=== PATIENT | female | born 1970 | race Hispanic/Latino ===

== ENCOUNTER 2016-08-07 05:16 | Emergency (ER) | payer OTHER | END 2016-08-07 05:20 | LOC: ED 05:16 | DX: Z53.21 Procedure and treatment not carried out due to patient leaving prior to being seen by health care provider (principal); Z91.02 Food additives allergy status; Z88.8 Allergy status to other drugs, medicaments and biological substances ==

== ENCOUNTER 2017-01-13 19:07 | Emergency (ER) | payer OTHER ==
[2017-01-13 19:53] VITALS: BP 108/67
--- NOTE | 2017-01-13 20:24 | Emergency Department Report ---
ED Upper Extremity Inj HPI - General Chief Complaint: Extremity Injury, Upper Stated Complaint: RT ARM PAIN Source: patient Mode of arrival: Ambulatory Limitations: No Limitations - History of Present Illness MD Complaint: Injury to:: right, elbow -: Sudden, days(s) Other Extremity Injury: Elbow: Right Other Injuries: none Handedness: right Place: outdoors Severity scale (0 -10): 4 Context: fall Associated Symptoms: denies other symptoms Treatments Prior to Arrival: NSAIDS - Related Data Home Medications Medication Instructions Recorded Confirmed Last Taken Citalopram [celeXA] 40 mg PO QDAY 10/15/14 11/17/15 10/15/14 15:00 40 Hydrochlorothiazide 25 mg PO DAILY 10/15/14 11/17/15 10/15/14 15:00 25 Lovastatin Tab [Mevacor] 10 mg PO QPM 10/15/14 11/17/15 10/15/14 15:00 10 Metformin HCl [Fortamet ER] 1,000 mg PO QDAY 10/15/14 11/17/15 10/15/14 15:00 1000 Metoprolol [Lopressor TAB] 50 mg PO BID 10/15/14 11/17/15 10/07/14 15:00 50 clonazePAM [KlonoPIN] 0.5 mg PO BID PRN 10/15/14 11/17/15 10/10/14 20:00 .5 glipiZIDE [glipiZIDE ER] 5 mg PO BID 10/15/14 11/17/15 10/14/14 15:00 5 Previous Rx's Medication Instructions Recorded Last Taken Type Aspirin [Aspirin TAB] 325 mg PO QDAY tablet 10/16/14 Unknown Rx Azithromycin [Zithromax TAB] 250 mg PO QDAY #6 tablet 11/17/15 Unknown Rx Benzonatate [Tessalon Perles] 100 mg PO Q8HR PRN #10 capsule 11/17/15 Unknown Rx Cyclobenzaprine [Flexeril] 10 mg PO TID #15 tablet 06/16/16 Unknown Rx Ibuprofen [Motrin 800 MG tab] 800 mg PO Q8HR PRN #30 tablet 06/16/16 Unknown Rx traMADol [Ultram 50 MG tab] 50 mg PO Q4HR PRN #20 tablet 01/13/17 Unknown Rx Allergies Allergy/AdvReac Type Severity Reaction Status Date / Time olive extract [olive] Allergy Hives Verified 05/14/15 13:17 sumatriptan [From Imitrex] Allergy Swelling Verified 05/14/15 13:17 sumatriptan succinate Allergy Swelling Verified 05/14/15 13:17 [From Imitrex] acetaminophen [From Lortab] AdvReac sick to Verified 05/14/15 13:17 stomach hydrocodone bitartrate AdvReac sick to Verified 05/14/15 13:17 [From Lortab] stomach ED Review of Systems ROS: Stated complaint: RT ARM PAIN Other details as noted in HPI Constitutional: denies: chills, fever Eyes: denies: eye pain, eye discharge, vision change ENT: denies: ear pain, throat pain Respiratory: denies: cough, shortness of breath, wheezing Cardiovascular: denies: chest pain, palpitations Endocrine: no symptoms reported Gastrointestinal: denies: abdominal pain, nausea, diarrhea Genitourinary: denies: urgency, dysuria, discharge Musculoskeletal: arthralgia. denies: back pain, joint swelling Skin: denies: rash, lesions Neurological: denies: headache, weakness, paresthesias Psychiatric: denies: anxiety, depression Hematological/Lymphatic: denies: easy bleeding, easy bruising ED Past Medical Hx - Past Medical History Hx Hypertension: No Hx CVA: No Hx Diabetes: Yes Hx Renal Disease: No Hx Arthritis: Yes Hx Seizures: No Hx Psychiatric Treatment: Yes (anxiety, Depression) Hx Asthma: Yes Hx HIV: No Additional medical history: Neuropathy. MVP. High cholesterol. TIA X 2 - Surgical History Hx Pacemaker: No Hx Cholecystectomy: Yes Additional Surgical History: x 2. right foot - Social History Smoking Status: Current Every Day Smoker Substance Use Type: None - Medications Home Medications: Home Medications Medication Instructions Recorded Confirmed Last Taken Type Citalopram [celeXA] 40 mg PO QDAY 10/15/14 11/17/15 10/15/14 15:00 History 40 Hydrochlorothiazide 25 mg PO DAILY 10/15/14 11/17/15 10/15/14 15:00 History 25 Lovastatin Tab [Mevacor] 10 mg PO QPM 10/15/14 11/17/15 10/15/14 15:00 History 10 Metformin HCl [Fortamet ER] 1,000 mg PO QDAY 10/15/14 11/17/15 10/15/14 15:00 History 1000 Metoprolol [Lopressor TAB] 50 mg PO BID 10/15/14 11/17/15 10/07/14 15:00 History 50 clonazePAM [KlonoPIN] 0.5 mg PO BID PRN 10/15/14 11/17/15 10/10/14 20:00 History .5 glipiZIDE [glipiZIDE ER] 5 mg PO BID 10/15/14 11/17/15 10/14/14 15:00 History 5 Aspirin [Aspirin TAB] 325 mg PO QDAY tablet 10/16/14 11/17/15 Unknown Rx Azithromycin [Zithromax TAB] 250 mg PO QDAY #6 tablet 11/17/15 Unknown Rx Benzonatate [Tessalon Perles] 100 mg PO Q8HR PRN #10 capsule 11/17/15 Unknown Rx Cyclobenzaprine [Flexeril] 10 mg PO TID #15 tablet 06/16/16 Unknown Rx Ibuprofen [Motrin 800 MG tab] 800 mg PO Q8HR PRN #30 tablet 06/16/16 Unknown Rx traMADol [Ultram 50 MG tab] 50 mg PO Q4HR PRN #20 tablet 01/13/17 Unknown Rx ED Physical Exam - General Limitations: No Limitations General appearance: alert, in no apparent distress - Head Head exam: Present: atraumatic, normocephalic - Eye Eye exam: Present: normal appearance, PERRL, EOMI - ENT ENT exam: Present: mucous membranes moist - Neck Neck exam: Present: normal inspection - Respiratory Respiratory exam: Absent: respiratory distress - Cardiovascular Cardiovascular Exam: Present: regular rate - Extremities Exam Extremities exam: Present: normal capillary refill, other (right elbow with no swelling, no deformity. Patient does have painful pronation and supination, going to rule out radial head fracture.). Absent: joint swelling - Back Exam Back exam: Present: normal inspection. Absent: CVA tenderness (R), CVA tenderness (L) - Neurological Exam Neurological exam: Present: alert, oriented X3, CN II-XII intact - Skin Skin exam: Present: warm, dry, intact ED Course Vital Signs 01/13/17 19:49 Temperature 98.5 F Pulse Rate 78 Respiratory 16 Rate Blood Pressure 108/67 O2 Sat by Pulse 95 Oximetry ED Medical Decision Making - Radiology Data Radiology results: report reviewed no fracture or fat pad Critical care attestation.: If time is entered above; I have spent that time in minutes in the direct care of this critically ill patient, excluding procedure time. ED Disposition Clinical Impression: Sprain of right elbow Disposition: - TO HOME OR SELFCARE Is pt being admited?: No Condition: Stable Instructions: Elbow Sprain (ED) Prescriptions: traMADol [Ultram 50 MG tab] 50 mg PO Q4HR PRN #20 tablet PRN Reason: Pain Referrals: PRIMARY CARE, [Primary Care Provider] - 3-5 Days EUGENE AYALA MD [Staff Physician] - 3-5 Days
--- NOTE | 2017-01-13 21:01 | XRay Report ---
FINAL REPORT PROCEDURE: Right elbow. TECHNIQUE: Three views. HISTORY: RT ELBOW PAIN COMPARISON: No prior studies are available for comparison. FINDINGS: The bones appear intact without fracture or dislocation. The joint spaces appear normal. The soft tissues are unremarkable. There is no evidence of an elbow effusion. IMPRESSION: Normal study.
== END 2017-01-13 21:23 | disposition home or self-care (01) ==
LOC: ED 19:07
DX: S53.491A Other sprain of right elbow, initial encounter (principal); E11.9 Type 2 diabetes mellitus without complications; M19.90 Unspecified osteoarthritis, unspecified site; F31.9 Bipolar disorder, unspecified; F41.9 Anxiety disorder, unspecified; F17.200 Nicotine dependence, unspecified, uncomplicated; J45.909 Unspecified asthma, uncomplicated; Z88.8 Allergy status to other drugs, medicaments and biological substances; Z91.018 Allergy to other foods; Z79.82 Long term (current) use of aspirin; X58.XXXA Exposure to other specified factors, initial encounter; Y93.89 Activity, other specified; Y99.8 Other external cause status; Y92.89 Other specified places as the place of occurrence of the external cause
CPT/HCPCS: 99283

== ENCOUNTER 2019-05-07 23:48 | Observation (INO) | payer OTHER ==
[2019-05-08 00:50] LABS: Basophils # (Auto) 0.1 K/mm3 (0.0-0.1); Basophils % (Auto) 1.6 % (0.0-1.8); Eosinophils # (Auto) 0.5 K/mm3 (0.0-0.4); Eosinophils % (Auto) 6.6 % (0.0-4.3); Hematocrit 36.2 % (30.3-42.9); Hemoglobin 12.3 gm/dl (10.1-14.3); Lymphocytes # (Auto) 2.2 K/mm3 (1.2-5.4); Lymphocytes % (Auto) 27.5 % (13.4-35.0); Mean Corpuscular HGB Conc 34 % (30-34); Mean Corpuscular Volume 93 fl (79-97); Monocytes # (Auto) 0.8 K/mm3 (0.0-0.8); Monocytes % (Auto) 9.5 % (0.0-7.3); Platelet Count 258 K/mm3 (140-440); Red Blood Count 3.89 M/mm3 (3.65-5.03); Red Cell Distribution Width 14.3 % (13.2-15.2)
--- NOTE | 2019-05-08 01:02 | XRay Report ---
CHEST 1 VIEW INDICATION: Chest Pain. COMPARISON: None. FINDINGS: Support devices: None. Heart: Within normal limits. Lungs/Pleura: No acute air space or interstitial disease. Additional findings: None. IMPRESSION: No acute abnormality. Signer Name: Pj Frias MD Signed: 05/08/2019 12:57 AM Workstation Name: [id number]
[2019-05-08 01:13] LABS: BUN/Creatinine Ratio 26; Blood Urea Nitrogen 21 mg/dL (7-17); Calcium 8.8 mg/dL (8.4-10.2); Hemolysis Index 24
[2019-05-08] MEDS ORDERED: ASPIRIN 325 MG TAB PO ONE (02:29)
[2019-05-08] MEDS ORDERED: NITROGLYCERIN 2% OINT 1 GM TP ONE (02:29)
--- NOTE | 2019-05-08 02:34 | Emergency Department Report ---
HPI - General Chief Complaint: Weakness Time Seen by Provider: 05/08/19 01:23 - HPI HPI: Room 24 The patient is a 48-year-old female presenting with chief complaint of chest pain and bilateral lower extremity swelling. The patient states for the past 3 days she's noted swelling of both lower extremities and she's been extremely fatigued. Patient states she's been compliant with her hydrochlorothiazide but has not helped with her swelling. Patient describes her chest discomfort as a pinching pain in the left chest which began yesterday. Patient states this pain is intermittent and associated with shortness of breath, diaphoresis and nausea without vomiting. The patient states her last stress test recurred over 5 years ago she's never had a cardiac catheterization Location: [See above] Duration: [See above] Quality: [See above] Severity: [See above] Timing: [See above] Context: [See above] Modifying factors: [See above] Associated signs and symptoms: [see above] ED Past Medical Hx - Past Medical History Previous Medical History?: Yes Hx Diabetes: Yes Hx Arthritis: Yes Hx Headaches / Migraines: Yes Hx Kidney Stones: Yes Hx Psychiatric Treatment: Yes (anxiety, Depression) Hx Asthma: Yes Additional medical history: Neuropathy. MVP. High cholesterol. TIA X 2 - Surgical History Past Surgical History?: Yes Hx Cholecystectomy: Yes Additional Surgical History: x 2. right foot - Family History Family history: no significant - Social History Smoking Status: Current Every Day Smoker (1/3 pack per day) Substance Use Type: None (denies illicit drug use) - Medications Home Medications: Home Medications Medication Instructions Recorded Confirmed Last Taken Type Citalopram [celeXA] 40 mg PO QDAY 10/15/14 11/17/15 10/15/14 15:00 History 40 Lovastatin Tab [Mevacor] 10 mg PO QPM 10/15/14 11/17/15 10/15/14 15:00 History 10 Metformin HCl [Fortamet ER] 1,000 mg PO QDAY 10/15/14 11/17/15 10/15/14 15:00 History 1000 Metoprolol [Lopressor TAB] 50 mg PO BID 10/15/14 11/17/15 10/07/14 15:00 History 50 clonazePAM [KlonoPIN] 0.5 mg PO BID PRN 04/11/17/15 10/10/14 20:00 History .5 glipiZIDE [glipiZIDE ER] 5 mg PO BID 10/15/14 11/17/15 10/14/14 15:00 History 5 hydroCHLOROthiazide 25 mg PO DAILY 10/15/14 11/17/15 10/15/14 15:00 History [Hydrochlorothiazide] 25 Aspirin 325 mg PO QDAY tablet 10/16/14 11/17/15 Unknown Rx Azithromycin [Zithromax TAB] 250 mg PO QDAY #6 tablet 11/17/15 Unknown Rx Benzonatate [Tessalon Perles] 100 mg PO Q8HR PRN #10 capsule 11/17/15 Unknown Rx Cyclobenzaprine [Flexeril] 10 mg PO TID #15 tablet 06/16/16 Unknown Rx Ibuprofen [Motrin 800 MG tab] 800 mg PO Q8HR PRN #30 tablet 06/16/16 Unknown Rx traMADoL [Ultram 50 MG tab] 50 mg PO Q4HR PRN #20 tablet 01/13/17 Unknown Rx Nitrofurantoin [place]/M-Cryst 100 mg PO Q12HR #10 capsule 05/11/18 Unknown Rx [Macrobid CAP] Tramadol HCl [Ultram] 50 mg PO Q6H PRN #10 tablet 05/11/18 Unknown Rx ED Review of Systems ROS: Stated complaint: WEAKNESS Other details as noted in HPI Constitutional: diaphoresis Eyes: denies: eye pain ENT: denies: throat pain Respiratory: shortness of breath Cardiovascular: chest pain Endocrine: no symptoms reported Gastrointestinal: nausea. denies: vomiting Musculoskeletal: denies: back pain Neurological: denies: headache Physical Exam - Physical Exam Vital Signs: Vital Signs 05/08/19 00:11 Temperature 97.6 F Pulse Rate 80 Respiratory 16 Rate Blood Pressure 122/72 O2 Sat by Pulse 96 Oximetry Physical Exam: GENERAL: The patient is well-developed well-nourished female sitting on stretcher not appearing to be in acute distress. [] HEENT: Normocephalic. Atraumatic. Extraocular motions are intact. Patient has moist mucous membranes. NECK: Supple. Midline CHEST/LUNGS: Clear to auscultation. There is no respiratory distress noted. HEART/CARDIOVASCULAR: Regular. There is no tachycardia. There is no gallop rub or murmur. ABDOMEN: Abdomen is soft, nontender. Patient has normal bowel sounds. There is no abdominal distention. SKIN: There is no rash. There is trace pedal edema bilaterally. There is no diaphoresis. NEURO: The patient is awake, alert, and oriented. The patient is cooperative. The patient has normal speech MUSCULOSKELETAL: There is no evidence of acute injury. ED Course Vital Signs 05/08/19 00:11 Temperature 97.6 F Pulse Rate 80 Respiratory 16 Rate Blood Pressure 122/72 O2 Sat by Pulse 96 Oximetry ED Medical Decision Making - Lab Data Result diagrams: 05/08/19 00:28 05/08/19 00:28 Laboratory Tests 05/08/19 05/08/19 05/08/19 00:28 00:28 00:28 WBC 8.1 RBC 3.89 Hgb 12.3 Hct 36.2 MCV 93 MCH 32 MCHC 34 RDW 14.3 Plt Count 258 Lymph % (Auto) 27.5 [place] % (Auto) 9.5 H Eos % (Auto) 6.6 H Baso % (Auto) 1.6 Lymph # 2.2 [place] # 0.8 Eos # 0.5 H Baso # 0.1 Seg Neutrophils % 54.8 Seg Neutrophils # 4.4 Sodium 138 Potassium 4.3 Chloride 101.1 Carbon Dioxide 25 Anion Gap 16 BUN 21 H Creatinine 0.8 Estimated GFR > 60 BUN/Creatinine Ratio 26 Glucose 277 H Calcium 8.8 Troponin T < 0.010 NT-Pro-B Natriuret Pep 245.2 TSH Free T4 05/08/19 05/08/19 02:38 02:38 WBC RBC Hgb Hct MCV MCH MCHC RDW Plt Count Lymph % (Auto) [place] % (Auto) Eos % (Auto) Baso % (Auto) Lymph # [place] # Eos # Baso # Seg Neutrophils % Seg Neutrophils # Sodium Potassium Chloride Carbon Dioxide Anion Gap BUN Creatinine Estimated GFR BUN/Creatinine Ratio Glucose Calcium Troponin T NT-Pro-B Natriuret Pep 242.6 TSH 1.930 Free T4 1.38 - EKG Data -: EKG Interpreted by Me EKG shows normal: sinus rhythm Rate: normal - EKG Data When compared to previous EKG there are: previous EKG unavailable Interpretation: other (no ischemic changes seen) - Radiology Data Radiology results: report reviewed (chest x-ray), image reviewed (chest x-ray) interpreted by me: Chest x-ray-no focal infiltrates, no pneumothorax [facility] [address] [place] [address] XRay Report Signed Patient: CASSIDY CARCAMO MR#: [id number] : 1970 Acct:[id number] Age/Sex: 48 / F ADM Date: 05/07/19 Loc: ED Attending Dr: Timothy duenas Physician: ED MD MATT Date of Service: 05/08/19 Procedure(s): XR chest 1V ap Accession Number(s): [id number] cc: ED DOCMD Fluoro Time In Minutes: CHEST 1 VIEW INDICATION: Chest Pain. COMPARISON: None. FINDINGS: Support devices: None. Heart: Within normal limits. Lungs/Pleura: No acute air space or interstitial disease. Additional findings: None. IMPRESSION: No acute abnormality. Signer Name: Pj Frias MD Signed: 05/08/2019 12:57 AM Workstation Name: [id number] Transcribed By: ES Dictated By: Pj Frias MD Electronically Authenticated By: Pj Frias MD Signed Date/Time: 05/08/1956 DD/ TD/TT: - Differential Diagnosis ACS, CHF, pericarditis, GERD Critical care attestation.: If time is entered above; I have spent that time in minutes in the direct care of this critically ill patient, excluding procedure time. ED Disposition Clinical Impression: Chest pain Disposition: 09 OP ADMIT IP TO THIS HOSP Is pt being admited?: Yes Does the pt Need Aspirin: Yes Condition: Fair Instructions: Chest Pain (ED) Time of Disposition: 04:02 (hospitalist paged (Dr. Britney Del Cid))
[2019-05-08 03:53] LABS: Free T4 (Free Thyroxine) 1.38 ng/dL (0.76-1.46)
[2019-05-08] MEDS ORDERED: NITROGLYCERIN 0.4 MG TAB SUBL SL PRN (04:23)
[2019-05-08] MEDS ORDERED: MORPHINE 2 MG/1 ML INJ IV PRN (04:27)
[2019-05-08] MEDS ORDERED: ACETAMINOPHEN 325 MG TAB PO PRN (04:27)
[2019-05-08] MEDS ORDERED: DEXTROSE 50% IN WATER (25GM) 50 ML SYRINGE IV PRN (04:27)
[2019-05-08] MEDS ORDERED: ALBUTEROL 2.5 MG/3 ML NEBU IH PRN (04:27)
[2019-05-08] MEDS ORDERED: ONDANSETRON 4 MG/2 ML INJ IV PRN (04:27)
--- NOTE | 2019-05-08 05:01 | History and Physical Report ---
<MARV GARCIA - Last Filed: 05/08/19 04:55> History of Present Illness Date of examination: 05/08/19 Date of admission: 05/08/2019 Chief complaint: BLE edema L>R, Fatigue, and Chest Pain History of present illness: 48-year-old female who is an ongoing smoker with history of diabetes type 2, arthritis, migraines, anxiety, depression, asthma, neuropathy, MVP, HLD, TIA 2 presents to [facility] ED with complaints of chest pain, fatigue and worsening bilateral lower extremity edema for the past 2-3 days. Patient states that she was unable to work last night she felt fatigued. Patient works at [employer] which requires her to stand on her feet for approximately 8-9 hours each shift. 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 Patient states she has chronic bilateral lower extremity edema and takes HCTZ. However her bilateral lower extremity edema has worsened even with being compliant with her diuretic therapy. Additionally she complains of intermittent left-sided chest pain. She rates her pain 5/10 and describes it as sharp. There are no aggravating or relieving factors. She denies n/v, and diaphoresis. Past History Past Medical History: arthritis, diabetes (with neuropathy), hyperlipidemia, other (asthma, depression, anxiety, MVP, migraines, TIAx2, ) Past Surgical History: cholecystectomy, (x2), Other (right foot surgery) Social history: smoking (smokes 1/3 ppd) Family history: no significant family history Medications and Allergies Allergies Allergy/AdvReac Type Severity Reaction Status Date / Time blueberry Allergy Anaphylaxis Verified 05/11/18 00:03 olive extract [olive] Allergy Hives Verified 05/14/15 13:17 sumatriptan [From Imitrex] Allergy Swelling Verified 05/14/15 13:17 sumatriptan succinate Allergy Swelling Verified 05/14/15 13:17 [From Imitrex] acetaminophen [From Lortab] AdvReac sick to Verified 05/14/15 13:17 stomach hydrocodone bitartrate AdvReac sick to Verified 05/14/15 13:17 [From Lortab] stomach Home Medications Medication Instructions Recorded Confirmed Last Taken Type Citalopram [celeXA] 40 mg PO QDAY 10/15/14 05/08/19 10/15/14 15:00 History 40 Metformin HCl [Fortamet ER] 1,000 mg PO QDAY 10/15/14 05/08/19 10/15/14 15:00 History 1000 Metoprolol [Lopressor TAB] 50 mg PO BID 10/15/14 05/08/19 10/07/14 15:00 History 50 glipiZIDE [glipiZIDE ER] 10 mg PO BID 10/15/14 05/08/19 10/14/14 15:00 History 5 hydroCHLOROthiazide 25 mg PO DAILY 10/15/14 05/08/19 10/15/14 15:00 History [Hydrochlorothiazide] 25 Aspirin 325 mg PO QDAY tablet 10/16/14 05/08/19 Unknown Rx AtorvaSTATin [Lipitor] 20 mg PO QDAY 05/08/19 05/08/19 Unknown History Gabapentin 400 mg PO TID 05/08/19 05/08/19 Unknown History Active Meds: Active Medications Acetaminophen (Tylenol) 650 mg PO Q4H PRN PRN Reason: Pain MILD(1-3)/Fever >100.5/BYRD Albuterol (Proventil) 2.5 mg IH Q4HRT PRN PRN Reason: Shortness Of Breath Aspirin (Baby Aspirin) 81 mg PO QDAY [facility] Atorvastatin Calcium (Lipitor) 20 mg PO QHS [facility] Dextrose (D50w (25gm) Syringe) 0 ml IV Q30MIN PRN; Protocol PRN Reason: Hypoglycemia Enoxaparin Sodium (Enoxaparin) 40 mg SUB-Q QDAY [facility] Insulin Human Lispro (Humalog) 0 unit SUB-Q Q6HR [facility]; Protocol Morphine Sulfate (Morphine) 2 mg IV Q4H PRN PRN Reason: Pain, Moderate (4-6) Nicotine (Habitrol) 14 mg TD QDAY [facility] Nitroglycerin (Nitrostat) 0.4 mg SL Q5M PRN PRN Reason: Chest Pain Ondansetron HCl (Zofran) 4 mg IV Q8H PRN PRN Reason: Nausea And Vomiting Sodium Chloride (Sodium Chloride Flush Syringe 10 Ml) 10 ml IV BID [facility] Sodium Chloride (Sodium Chloride Flush Syringe 10 Ml) 10 ml IV PRN PRN PRN Reason: LINE FLUSH Review of Systems All systems: negative Constitutional: fatigue Cardiovascular: chest pain (intermittent), shortness of breath, leg edema (worsening) Respiratory: cough with sputum (clear) Exam - Physical Exam Narrative exam: Physical exam General appearance: Present: No acute distress, alert and oriented 3, well-developed, adult female - EENT Eyes: Present: PERRL, EOM intact ENT: hearing intact, normal dentition - Neck Neck: Present: supple, normal ROM - Respiratory Respiratory effort: Non-labored Respiratory: Diminished bases - Cardiovascular Heart rate: 76(bpm) Rhythm: Sinus rhythm Heart Sounds: Present: S1 & S2. Absent: rub, click - Extremities Extremities: no ischemia, pulses intact, BLE edema L>R - Peripheral Assessment Peripheral Pulses: within normal limits - Abdominal General gastrointestinal: soft, non-tender, normal bowel sounds - Integumentary Integumentary: Present: warm, dry - Musculoskeletal Musculoskeletal: Able to move all extremities -Neurological Neurological: CN II-XII intact - Psychiatric Psychiatric: Appropriate for situation ,cooperative - Constitutional Vitals: Temp Pulse Resp BP Pulse Ox 97.6 F 80 16 122/72 96 05/08/19 00:11 05/08/19 00:11 05/08/19 00:11 05/08/19 00:11 05/08/19 00:11 Results - Labs CBC & Chem 7: 05/08/19 00:28 05/08/19 00:28 Labs: Laboratory Last Values WBC 8.1 K/mm3 (4.5-11.0) 05/08/19 00:28 RBC 3.89 M/mm3 (3.65-5.03) 05/08/19 00:28 Hgb 12.3 gm/dl (10.1-14.3) 05/08/19 00:28 Hct 36.2 % (30.3-42.9) 05/08/19 00:28 MCV 93 fl (79-97) 05/08/19 00:28 MCH 32 pg (28-32) 05/08/19 00:28 MCHC 34 % (30-34) 05/08/19 00:28 RDW 14.3 % (13.2-15.2) 05/08/19 00:28 Plt Count 258 K/mm3 (140-440) 05/08/19 00:28 Lymph % (Auto) 27.5 % (13.4-35.0) 05/08/19 00:28 [place] % (Auto) 9.5 % (0.0-7.3) H 05/08/19: Eos % (Auto) 6.6 % (0.0-4.3) H 05/08/19: Baso % (Auto) 1.6 % (0.0-1.8) 05/08/19: Lymph # 2.2 K/mm3 (1.2-5.4) 05/08/19: [place] # 0.8 K/mm3 (0.0-0.8) 05/08/19: Eos # 0.5 K/mm3 (0.0-0.4) H 05/08/19: Baso # 0.1 K/mm3 (0.0-0.1) 05/08/19: Seg Neutrophils % 54.8 % (40.0-70.0) 05/08/19: Seg Neutrophils # 4.4 K/mm3 (1.8-7.7) 05/08/19 00: Sodium 138 mmol/L (137-145) 05/08/19: Potassium 4.3 mmol/L (3.6-5.0) 05/08/19: Chloride 101.1 mmol/L (98-107) 05/08/19: Carbon Dioxide 25 mmol/L (22-30) 05/08/19: Anion Gap 16 mmol/L 05/08/19: BUN 21 mg/dL (7-17) H 05/08/19: Creatinine 0.8 mg/dL (0.7-1.2) 05/08/19 00: Estimated GFR > 60 ml/min 05/08/19: BUN/Creatinine Ratio 26 % 05/08/19: Glucose 277 mg/dL (65-100) H 05/08/19: Calcium 8.8 mg/dL (8.4-10.2) 05/08/19 00: Troponin T < 0.010 ng/mL (0.00-0.029) 05/08/19: NT-Pro-B Natriuret Pep 242.6 pg/mL (0-900) 05/08/19 02:38 TSH 1.930 mlU/mL (0.270-4.200) 05/08/19 02:38 Free T4 1.38 ng/dL (0.76-1.46) 05/08/19 02:38 - Imaging and Cardiology Imaging and Cardiology: CXR: FINDINGS: Support devices: None. Heart: Within normal limits. Lungs/Pleura: No acute air space or interstitial disease. Additional findings: None. IMPRESSION: No acute abnormality. Assessment and Plan Assessment and plan: 48-year-old female who is an ongoing smoker with history of diabetes type 2, arthritis, migraines, anxiety, depression, asthma, neuropathy, MVP, HLD, TIA 2 presents to [facility] ED with complaints of chest pain, fatigue and worsening bilateral lower extremity edema for the past 2-3 days. Will admit as obs to Telemetry for further evaluation. Acute Chest Pain -Initiate chest pain protocol -Continuous telemetry monitoring -Continue supportive care -Pain mgmt -Troponin negative x1 , will continue to trend -EKG unrevealing for acute ischemic abnormalities -Echo done in 2014 showed EF of 55-60% -Lexiscan pending -On ASA and Statin -Lipid panel pending DM 2 -Hyperglycemia BG 277 -POC BG monitoring -SSI coverage prn -HgbA1C pending Bilateral lower extremity edema -L>R -Patient complains of left lower extremity pain -Continue supportive care -Left lower extremity Doppler pending Tobacco abuse -Current every day smoker -Counseled for cessation -Nicotine patch when necessary Hx mitral valve prolapse -Resume BB and diuretic once medication reconciliation has been updated Hx Asthma -Albuterol when necessary DVT PPX -on Lovenox Advance Directives: No VTE prophylaxis?: Chemical Plan of care discussed with patient/family: Yes <TUTU GREY - Last Filed: 05/08/19 06:23> History of Present Illness Date of admission: 05/08/19 05:14 Medications and Allergies Active Meds: Active Medications Acetaminophen (Tylenol) 650 mg PO Q4H PRN PRN Reason: Pain MILD(1-3)/Fever >100.5/BYRD Albuterol (Proventil) 2.5 mg IH Q4HRT PRN PRN Reason: Shortness Of Breath Aspirin (Baby Aspirin) 81 mg PO QDAY [facility] Atorvastatin Calcium (Lipitor) 20 mg PO QHS [facility] Dextrose (D50w (25gm) Syringe) 0 ml IV Q30MIN PRN; Protocol PRN Reason: Hypoglycemia Enoxaparin Sodium (Enoxaparin) 40 mg SUB-Q QDAY [facility] Insulin Human Lispro (Humalog) 0 unit SUB-Q Q6HR [facility]; Protocol Morphine Sulfate (Morphine) 2 mg IV Q4H PRN PRN Reason: Pain, Moderate (4-6) Nicotine (Habitrol) 14 mg TD QDAY [facility] Nitroglycerin (Nitrostat) 0.4 mg SL Q5M PRN PRN Reason: Chest Pain Ondansetron HCl (Zofran) 4 mg IV Q8H PRN PRN Reason: Nausea And Vomiting Sodium Chloride (Sodium Chloride Flush Syringe 10 Ml) 10 ml IV BID [facility] Sodium Chloride (Sodium Chloride Flush Syringe 10 Ml) 10 ml IV PRN PRN PRN Reason: LINE FLUSH Exam - Constitutional Vitals: Temp Pulse Resp BP Pulse Ox 97.6 F 82 21 111/52 95 05/08/19 00:11 05/08/19 05:22 05/08/19 05:22 05/08/19 05:22 05/08/19 05:22 Results - Labs CBC & Chem 7: 05/08/19 00:28 05/08/19 00:28 Labs: Laboratory Last Values WBC 8.1 K/mm3 (4.5-11.0) 05/08/19 00:28 RBC 3.89 M/mm3 (3.65-5.03) 05/08/19 00:28 Hgb 12.3 gm/dl (10.1-14.3) 05/08/19 00:28 Hct 36.2 % (30.3-42.9) 05/08/19 00:28 MCV 93 fl (79-97) 05/08/19 00:28 MCH 32 pg (28-32) 05/08/19 00:28 MCHC 34 % (30-34) 05/08/19 00:28 RDW 14.3 % (13.2-15.2) 05/08/19 00:28 Plt Count 258 K/mm3 (140-440) 05/08/19 00:28 Lymph % (Auto) 27.5 % (13.4-35.0) 05/08/19 00:28 [place] % (Auto) 9.5 % (0.0-7.3) H 05/08/19 00:28 Eos % (Auto) 6.6 % (0.0-4.3) H 05/08/19 00:28 Baso % (Auto) 1.6 % (0.0-1.8) 05/08/19 00: Lymph # 2.2 K/mm3 (1.2-5.4) 05/08/19 00:28 [place] # 0.8 K/mm3 (0.0-0.8) 05/08/19 00:28 Eos # 0.5 K/mm3 (0.0-0.4) H 05/08/19 00: Baso # 0.1 K/mm3 (0.0-0.1) 05/08/19 00: Seg Neutrophils % 54.8 % (40.0-70.0) 05/08/19 00: Seg Neutrophils # 4.4 K/mm3 (1.8-7.7) 05/08/19 00: Sodium 138 mmol/L (137-145) 05/08/19 00:28 Potassium 4.3 mmol/L (3.6-5.0) 05/08/19 00:28 Chloride 101.1 mmol/L (98-107) 05/08/19 00: Carbon Dioxide 25 mmol/L (22-30) 05/08/19 00: Anion Gap 16 mmol/L 05/08/19 00:28 BUN 21 mg/dL (7-17) H 05/08/19 00:28 Creatinine 0.8 mg/dL (0.7-1.2) 05/08/19 00:28 Estimated GFR > 60 ml/min 05/08/19 00:28 BUN/Creatinine Ratio 26 % 05/08/19 00:28 Glucose 277 mg/dL (65-100) H 05/08/19 00:28 Hemoglobin A1c 10.3 % (4-6) H 05/08/19 04:41 Calcium 8.8 mg/dL (8.4-10.2) 05/08/19 00:28 Troponin T < 0.010 ng/mL (0.00-0.029) 05/08/19 04:41 NT-Pro-B Natriuret Pep 242.6 pg/mL (0-900) 05/08/19 02:38 TSH 1.930 mlU/mL (0.270-4.200) 05/08/19 02:38 Free T4 1.38 ng/dL (0.76-1.46) 05/08/19 02:38 Assessment and Plan Assessment and plan: 48 year old woman with diabetes hyperlipidemia, asthma, depression, anxiety, MVP, migraines, TIAx2 comes to the ER with complaints of chest pain and left leg swelling. Agree with plan as discussed above
[2019-05-08] MEDS ORDERED: REGADENOSON 0.4 MG/5 ML INJ IV ONE (08:00)
[2019-05-08] MEDS ORDERED: ASPIRIN 81 MG TAB CHEW PO SCH (10:00)
[2019-05-08] MEDS ORDERED: ENOXAPARIN 40 MG/0.4 ML INJ SUB-Q SCH (10:00)
[2019-05-08] MEDS ORDERED: NICOTINE 14 MG/24 HR PATCH TD SCH (10:00)
[2019-05-08] MEDS: INSULIN LISPRO 100 UNIT/ML SUB-Q SCH ×2 (10:43→13:34)
[2019-05-08 11:24] VITALS: BP 132/70
--- NOTE | 2019-05-08 13:00 | Vascular Lab Report ---
DUPLEX DOPPLER LEFT LOWER EXTREMITY VEINS INDICATION: LLE edema with slight pain FINDINGS: There is no thrombus within the deep veins of the left lower extremity from the common femoral to the calf veins. There is normal compression and augmentation on spectral analysis. IMPRESSION: No sonographic evidence for DVT in the left lower extremity. Signer Name: Saturnino Green MD Signed: 05/08/2019 12:55 PM Workstation Name: [email or web address]
--- NOTE | 2019-05-08 15:47 | Discharge Summary ---
Providers - Providers Date of Admission: 05/08/19 05:14 Date of discharge: 05/08/19 Attending physician: KAITLIN DAVIS 05/08/19 Consult to Cardiac Rehabilitation [CONS] Routine Reason For Exam: Phase I Hospitalization Condition: Stable Hospital course: Patient is a 48-year-old woman with a history of tobacco dependency, diabetes mellitus type 2, arthritis, migraines, anxiety, depression, asthma, neuropathy, MVP, HLD and TIA 2 who presents to [facility] ED with complaints of chest pain. She underwent a thorough cardiac evaluation including a negative stress test. Discharge Diagnoses: Chest pain, atypical, suspect msk in nature: advise to stop smoking and follow up with PCP DM 2 -HgbA1C 10.3, education and counseling done Bilateral lower extremity edema, L>R -Left lower extremity Doppler negative for DVT Tobacco abuse-Counseled for cessation Hx mitral valve prolapse Hx Asthma-Albuterol when necessary Disposition: DC-01 TO HOME OR SELFCARE Time spent for discharge: 32 minutes Core Measure Documentation - Palliative Care Palliative Care/ Comfort Measures: Not Applicable - Core Measures Any of the following diagnoses?: none - VTE Discharge Requirements Deep Vein Thrombosis/Pulmonary Embolism Present on Admission: No Has pt received <5 days of overlap therapy or INR<2.0: No Anticoagulant overlap therapy prescribed at discharge: No Contraindication No Overlap Therapy order at DC: Not Indicated Exam - Constitutional Vitals: Temp Pulse Resp BP Pulse Ox 97.6 F 81 14 132/70 96 05/08/19 00:11 05/08/19 06:10 05/08/19 06:10 05/08/19 10:52 05/08/19 06:10 General appearance: Present: no acute distress - EENT Eyes: Present: PERRL, EOM intact ENT: hearing intact, clear oral mucosa - Neck Neck: Present: supple, normal ROM - Respiratory Respiratory effort: normal Respiratory: bilateral: CTA - Cardiovascular Rhythm: regular Heart Sounds: Present: S1 & S2 - Extremities Extremities: pulses intact Peripheral Pulses: within normal limits - Abdominal General gastrointestinal: Present: soft, non-tender, non-distended, normal bowel sounds - Musculoskeletal Musculoskeletal: strength equal bilaterally - Psychiatric Psychiatric: appropriate mood/affect - Neurologic Neurologic: CNII-XII intact, no focal deficits, moves all extremities Plan Activity: other (no strenous activity unless cleared by PCP) Diet: low salt, diabetic Special Instructions: record daily BP diary, record blood sugar diary, smoking cessation Follow up with: [facility] [Other] - 7 Days Prescriptions: AtorvaSTATin [Lipitor] 20 mg PO QHS #30 Aspirin 325 mg PO QDAY #30 tablet Insulin Glargine,Hum.rec.anlog [Basaglar Kwikpen U-100] 72 unit SQ BID #1 insuln.pen Citalopram [celeXA] 4 tab PO QDAY #120 Gabapentin 400 mg PO TID #90 cap Nicotine [Habitrol] 14 mg TD QDAY #14 patch Metoprolol [Lopressor TAB] 50 mg PO BID #60 Metformin HCl [metFORMIN] 1,000 mg PO BID #60 tablet
--- NOTE | 2019-05-08 22:03 | Treadmill Report ---
THALLIUM STRESS TEST LEFT VENTRICLE: Left ventricular chamber size is within normal limits. Perfusion study demonstrates homogeneous uptake of the tracer in all segments, no significant defects identified. There is mild breast attenuation artifact. Gated analysis demonstrates normal left ventricular systolic function, ejection fraction 65%. CONCLUSION: Normal myocardial perfusion study. JOB# [id number] CA/NTS
== END 2019-05-08 16:44 | disposition home or self-care (01) ==
LOC: ED 23:48 → 4A 05-08 05:14
PROVIDERS: ADMIT Internal Medicine; ATTEND Internal Medicine
DX: R07.89 Other chest pain (principal); M79.89 Other specified soft tissue disorders; R53.83 Other fatigue; R06.02 Shortness of breath; R11.0 Nausea; E11.9 Type 2 diabetes mellitus without complications; M19.90 Unspecified osteoarthritis, unspecified site; G43.909 Migraine, unspecified, not intractable, without status migrainosus; F32.9 Major depressive disorder, single episode, unspecified; F41.9 Anxiety disorder, unspecified; J45.909 Unspecified asthma, uncomplicated; E78.5 Hyperlipidemia, unspecified; Z87.442 Personal history of urinary calculi; Z90.49 Acquired absence of other specified parts of digestive tract; F17.200 Nicotine dependence, unspecified, uncomplicated; Z86.73 Personal history of transient ischemic attack (TIA), and cerebral infarction without residual deficits
CPT/HCPCS: 36415; 71045; 78452; 80048; 82962; 83036; 83880; 84439; 84443; 84484; 85025; 93005; 93010; 93017; 93971; 96372; 99284; 99406; A9502; G0378; J1650; J2785

== ENCOUNTER 2021-09-21 18:31 | Emergency (ER) | payer OTHER ==
[2021-09-21 18:43] VITALS: BP 127/66
== END 2021-09-21 20:48 | disposition left against medical advice (07) ==
LOC: ED 18:31
DX: L02.32 Furuncle of buttock (principal); Z53.21 Procedure and treatment not carried out due to patient leaving prior to being seen by health care provider

== ENCOUNTER 2021-10-18 13:17 | Emergency (ER) | payer OTHER ==
[2021-10-18 14:20] VITALS: BP 109/62
--- NOTE | 2021-10-18 14:35 | Emergency Department Report ---
Minor Respiratory - HPI Chief Complaint: Upper Respiratory Infection Stated Complaint: COUGHING/POSS PNEUMONIA Time Seen by Provider: 10/18/21 14:31 Duration: 5 Days Pain Location: Chest Severity: moderate Minor Respiratory: Yes Able to Tolerate Fluids, Yes Cough, No Rhinorrhea, No Sore Throat, No Ear Pain, No Sick Contacts, No Hemoptysis, No Chest Pain, No Shortness of Breath, No Fever Other History: Is a 50-year-old female that comes to the emergency room complaining of a coughing that is keeping her up at night. She recently saw [facility] and they have her on Keflex. She states the cough is gotten no better. Patient is an ongoing smoker. She is on no prednisone and has no albuterol. I suspect there is an undiagnosed COPD at play. Patient has no purulent sputum. She does endorse phlegm but does not look at the color. She has no fever or chills. ED Review of Systems ROS: Stated complaint: COUGHING/POSS PNEUMONIA Other details as noted in HPI Comment: All other systems reviewed and negative ED Past Medical Hx - Past Medical History Previous Medical History?: Yes Hx Hypertension: No Hx CVA: No Hx Heart Attack/AMI: No Hx Congestive Heart Failure: Yes Hx Diabetes: Yes Hx Deep Vein Thrombosis: No Hx Pulmonary Embolism: No Hx GERD: No Hx Liver Disease: No Hx Renal Disease: No Hx of Cancer: No Hx Sickle Cell Disease: No Hx Arthritis: Yes Hx Headaches / Migraines: Yes Hx Seizures: No Hx Kidney Stones: Yes Hx Psychiatric Treatment: Yes (anxiety, Depression) Hx Asthma: Yes Hx HIV: No Additional medical history: Neuropathy. MVP. High cholesterol. TIA X 2 - Surgical History Past Surgical History?: Yes Hx Pacemaker: No Hx Cholecystectomy: Yes Additional Surgical History: x 2. right foot - Family History Family history: no significant - Social History Smoking Status: Current Every Day Smoker Substance Use Type: None - Medications Home Medications: Home Medications Medication Instructions Recorded Confirmed Last Taken Type hydroCHLOROthiazide 25 mg PO DAILY 10/15/14 05/08/19 10/15/14 15:00 History [Hydrochlorothiazide] 25 Aspirin 325 mg PO QDAY #30 tablet 05/08/19 Unknown Rx AtorvaSTATin [Lipitor] 20 mg PO QHS #30 05/08/19 Unknown Rx Citalopram [celeXA] 4 tab PO QDAY #120 05/08/19 Unknown Rx Gabapentin 400 mg PO TID #90 cap 05/08/19 Unknown Rx Insulin Glargine,Hum.rec.anlog 72 unit SQ BID #1 insuln.pen 05/08/19 Unknown Rx [Basaglar Shanpen U-100] Metformin HCl [metFORMIN] 1,000 mg PO BID #60 tablet 05/08/19 Unknown Rx Metoprolol [Lopressor TAB] 50 mg PO BID #60 05/08/19 Unknown Rx Nicotine [Habitrol] 14 mg TD QDAY #14 patch 05/08/19 Unknown Rx ALBUTEROL NEB's [Proventil 0.083% 5 mg IH TID PRN #1 box 10/18/21 Unknown Rx NEBS] Albuterol Mdi (or & Nicu Only) 2 puff IH QID PRN #1 inhalation 10/18/21 Unknown Rx [ProAir HFA Inhaler] Benzonatate [Tessalon Perles] 100 mg PO Q12H PRN #20 capsule 10/18/21 Unknown Rx Cetirizine HCl [ZyrTEC] 10 mg PO DAILY #30 capsule 10/18/21 Unknown Rx Fluticasone [Flonase] 1 spray NS QDAY #1 bottle 10/18/21 Unknown Rx predniSONE [Deltasone] 20 mg PO DAILY #5 tablet 10/18/21 Unknown Rx Minor Respiratory Exam - Exam General: Vital signs noted. No distress. Alert and acting appropriately. HEENT: Yes Moist Mucous Membranes, No Pharyngeal Erythema, No Pharyngeal Exudates, No Rhinorrhea, No Conjuctival Injection, No Frontal Tenderness, No Maxillary Tenderness Ear: Neither TM Bulge, Neither TM Erythema, Neither EAC Pain, Neither EAC Discharge Neck: Yes Supple, No Adenopathy Lungs: Yes Good Air Exchange, Yes Wheezes, No Ronchi, No Stridor, No Cough, No Labored Respirations, No Retractions, No Use of Accessory Muscles, No Other Abnormal Lung Sounds Heart: Yes Regular, No Murmur Abdomen: Yes Normal Bowel Sounds, No Tenderness, No Peritoneal Signs Skin: No Rash, No Edema Neurologic: Alert and oriented, no deficits. Musculoskeletal: Unremarkable. ED Course Vital Signs 10/18/21 14:19 Temperature 98.5 F Pulse Rate 78 Respiratory 20 Rate Blood Pressure 109/62 O2 Sat by Pulse 94 Oximetry ED Medical Decision Making - Radiology Data Radiology results: report reviewed, image reviewed No acute process - Medical Decision Making Vital Signs 10/18/21 14:19 Temperature 98.5 F Pulse Rate 78 Respiratory 20 Rate Blood Pressure 109/62 O2 Sat by Pulse 94 Oximetry X-ray with no consolidation. I reviewed patient's home medications with her. She is on Keflex. I have given her prednisone and a DuoNeb here in the ER. Patient has no hypotension, tachycardia or fever. She denies chills. She has no chest pain. She is followed by [facility]. Patient being discharged home with discharge plan of care. She verbalizes understanding of diet, activity, meds and follow up. Patient has been counseled on smoking cessation - Differential Diagnosis Rule out pneumonia, COPD Critical care attestation.: If time is entered above; I have spent that time in minutes in the direct care of this critically ill patient, excluding procedure time. ED Disposition Clinical Impression: Bronchitis, Current smoker Disposition: HOME / SELF CARE / HOMELESS Is pt being admited?: No Does the pt Need Aspirin: No Condition: Stable Instructions: Upper Respiratory Infection, Adult, [id number], Chronic Bronchitis (ED) Additional Instructions: Avoid smoking. Continue home medications Take medications given to you today You likely have a component of chronic lung disease. She should follow-up with the primary care that can refer you to a egg trayer for pulmonary function studies. Stay well-hydrated with water Motrin or Tylenol for pain Prescriptions: predniSONE [Deltasone] 20 mg PO DAILY #5 tablet Fluticasone [Flonase] 1 spray NS QDAY #1 bottle Albuterol Mdi (or & Nicu Only) [ProAir HFA Inhaler] 2 puff IH QID PRN #1 inhalation PRN Reason: Shortness Of Breath ALBUTEROL NEB's [Proventil 0.083% NEBS] 5 mg IH TID PRN #1 box PRN Reason: Wheezing Benzonatate [Tessalon Perles] 100 mg PO Q12H PRN #20 capsule PRN Reason: Cough Cetirizine HCl [ZyrTEC] 10 mg PO DAILY #30 capsule Referrals: KAYLA BRANTLEY MD [Staff Physician] - 3-5 Days Time of Disposition: 14:45
[2021-10-18] MEDS ORDERED: IPRATROPIUM 0.02% NEBU 2.5 ML IH ONE (14:41)
[2021-10-18] MEDS ORDERED: ALBUTEROL 2.5 MG/3 ML NEBU IH ONE (14:41)
[2021-10-18] MEDS ORDERED: predniSONE 20 MG TAB PO ONE (14:41)
--- NOTE | 2021-10-18 14:54 | XRay Report ---
CHEST 2 VIEWS INDICATION / CLINICAL INFORMATION: cough. COMPARISON: Chest x-ray 05/08/2019 FINDINGS: SUPPORT DEVICES: None. HEART / MEDIASTINUM: No significant abnormality. LUNGS / PLEURA: No significant pulmonary or pleural abnormality. No pneumothorax. ADDITIONAL FINDINGS: No significant additional findings. IMPRESSION: 1. No acute findings. Signer Name: Saturnino Green MD Signed: 10/18/2021 2:50 PM Workstation Name: [employer]
== END 2021-10-18 16:04 | disposition home or self-care (01) ==
LOC: ED 13:17
DX: J40 Bronchitis, not specified as acute or chronic (principal); F17.200 Nicotine dependence, unspecified, uncomplicated; E11.9 Type 2 diabetes mellitus without complications
CPT/HCPCS: 71046; 94640; 99283